=== PATIENT | female | born 1965 | race Caucasian/White ===

== ENCOUNTER → 2019-09-27 | Outpatient (CLI) | payer BC, OTHER ==
[2019-09-27 13:54] LABS: C REACTIVE PROTEIN QUANTITATIV 0.45 MG/DL (0.00-0.30); RHEUMATOID FACTOR QUANT < 10.0 IU/ML (<15.0)
[2019-10-02 11:14] LABS: ANTINUCLEAR ANTIBODIES DIRECT Negative (Negative); HLA-B27 Negative (.)
== END ==
LOC: M LAB 11:55
PROVIDERS: ATTEND Physician Assistant
DX: M16.0 Bilateral primary osteoarthritis of hip (principal)

== ENCOUNTER → 2019-09-27 | Outpatient (CLI) | payer BC, OTHER ==
[2019-09-27 13:35] LABS: BASO % 0.6 % (0.0-1.0); EOS # 0.2 10^3/uL (0.0-0.5); EOS % 3.1 % (0.0-3.0); HEMATOCRIT 44.7 % (36.0-47.0); HEMOGLOBIN 14.1 g/dl (12.0-15.5); LYMPH # 2.4 10^3/uL (1.5-5.0); LYMPH % 37.4 % (24.0-44.0); MEAN CORPUSCULAR HEMOGLOBIN 30.2 pg (27.0-33.0); MEAN CORPUSCULAR HGB CONC 31.5 g/dl (32.0-36.5); MEAN CORPUSCULAR VOLUME 95.7 fl (80.0-96.0); MONO # 0.4 10^3/uL (0.0-0.8); MONO % 6.2 % (0.0-5.0); NEUTROPHILS # 3.4 10^3/uL (1.5-8.5); NEUTROPHILS % 52.4 % (36.0-66.0); PLATELET COUNT, AUTOMATED 318 10^3/uL (150-450); RED BLOOD COUNT 4.67 10^6/uL (4.00-5.40); WHITE BLOOD COUNT 6.4 10^3/uL (4.0-10.0)
[2019-09-27 13:45] LABS: INR 0.99; PROTHROMBIN TIME 12.8 SECONDS (11.8-14.0)
[2019-09-27 13:59] LABS: ALBUMIN 3.9 GM/DL (3.2-5.2); ALT/SGPT 33 U/L (12-78); BILIRUBIN,TOTAL 0.5 MG/DL (0.2-1.0); BLOOD UREA NITROGEN 13 MG/DL (7-18); CARBON DIOXIDE LEVEL 33 MEQ/L (21-32); CHLORIDE LEVEL 102 MEQ/L (98-107); CREATININE FOR GFR 0.67 MG/DL (0.55-1.30); GLOMERULAR FILTRATION RATE > 60.0 (>51); GLUCOSE, FASTING 91 MG/DL (70-100); POTASSIUM SERUM 4.1 MEQ/L (3.5-5.1); SODIUM LEVEL 137 MEQ/L (136-145); TOTAL PROTEIN 7.8 GM/DL (6.4-8.2)
== END ==
LOC: M LAB 12:00
PROVIDERS: ATTEND Internal Medicine Adolescent Medicine
DX: K76.0 Fatty (change of) liver, not elsewhere classified (principal); R16.0 Hepatomegaly, not elsewhere classified; D18.03 Hemangioma of intra-abdominal structures

== ENCOUNTER → 2020-01-08 | Outpatient (CLI) | payer BC, OTHER ==
[2020-01-08 12:42] LABS: THYROID STIMULATING HORMONE 1.22 uIU/ML (0.358-3.740); THYROXINE (T4) 9.2 UG/DL (4.5-12.0)
== END ==
LOC: M LAB 11:10
PROVIDERS: ATTEND Physician Assistant
DX: E04.2 Nontoxic multinodular goiter (principal)

== ENCOUNTER → 2020-01-08 | Outpatient (CLI) | payer BC, OTHER ==
[2020-01-08 11:58] LABS: PLATELET COUNT, AUTOMATED 330 10^3/uL (150-450)
[2020-01-08 12:15] LABS: INR 0.92; PARTIAL THROMBOPLASTIN TIME 27.1 SECONDS (24.2-38.5); PROTHROMBIN TIME 12.5 SECONDS (12.5-14.3)
== END ==
LOC: M LAB 11:07
PROVIDERS: ATTEND Physician Assistant
DX: M51.27 Other intervertebral disc displacement, lumbosacral region (principal)

== ENCOUNTER → 2020-01-08 | Outpatient (CLI) | payer BC, OTHER | LOC: M LABSMTC 10:51 | PROVIDERS: ATTEND Physical Medicine & Rehabilitation | DX: Z01.812 Encounter for preprocedural laboratory examination (principal); Z20.828 Contact with and (suspected) exposure to other viral communicable diseases ==

== ENCOUNTER → 2020-04-02 | Outpatient (REF) | payer BC, OTHER ==
[2020-04-02 13:36] LABS: APPEARANCE, URINE CLEAR (CLEAR); BACTERIA, URINE AUTO NEGATIVE (NEGATIVE); BILIRUBIN, URINE AUTO NEGATIVE (NEGATIVE); BLOOD, URINE BLOOD NEGATIVE (NEGATIVE); COLOR, URINE YELLOW (YELLOW); GLUCOSE, URINE (UA) AUTO NEGATIVE (NEGATIVE); KETONE, URINE AUTO NEGATIVE (NEGATIVE); LEUKOCYTE ESTERASE, URINE AUTO NEGATIVE (NEGATIVE); MUCUS, URINE SMALL (NEGATIVE); NITRITE, URINE AUTO NEGATIVE (NEGATIVE); PROTEIN, URINE AUTO NEGATIVE (NEGATIVE); RBC, URINE AUTO 0 /HPF (0-3); SPECIFIC GRAVITY URINE AUTO 1.016 (1.002-1.035); SQUAMOUS EPITHELIAL CELL UR AU 1 /HPF (0-6); UROBILINOGEN, URINE AUTO 0.2 mg/dL (0.0-2.0); WBC, URINE AUTO 1 /HPF (0-3)
== END ==
LOC: M SMT 13:22
PROVIDERS: ATTEND Nurse Practitioner Women's Health
DX: R32 Unspecified urinary incontinence (principal)

== ENCOUNTER → 2020-11-13 | Outpatient (CLI) | payer BC, OTHER ==
[~2020-11-13] MED LIST: GASTROGRAFIN SOLUTION 30ML (Q9963) As Ordered ONE; ISOVUE-370 76% 100ML VIAL As Ordered ONE
--- NOTE | 2020-11-15 09:21 | REP ---
INDICATION: ABD PAIN. COMPARISON: None. TECHNIQUE: Scans were obtained during contrast administration. FINDINGS: The lower lungs are clear The liver shows normal size. Two tiny hemangiomas inferior portion the right lobe. No mass or biliary tract dilatation. The gallbladder has been surgically removed. The pancreas and spleen show normal size and attenuation. Aorta shows normal caliber. Adrenal glands are not enlarged. 1 cm cyst upper pole right kidney. Kidneys otherwise unremarkable. Large and small bowel unremarkable the a santos mass, adenopathy or inflammatory change in the abdomen or pelvis. The uterus and ovaries have been removed. IMPRESSION: No acute process. <Electronically signed by Anil Lewis > 11/15/20 [id number]
== END ==
LOC: M RAD 15:34
PROVIDERS: ATTEND Internal Medicine Adolescent Medicine
DX: R10.9 Unspecified abdominal pain (principal)
CPT/HCPCS: 74177; Q9963; Q9967

== ENCOUNTER 2020-11-26 13:07 | Emergency (ER) | payer BC, OTHER ==
[~2020-11-26] VITALS: Ht 157.5 cm; Wt 83.2 kg
[2020-11-26 13:07] VITALS: BP 117/87
[2020-11-26] MEDS ORDERED: MAGN400T2 (13:15)
[2020-11-26] MEDS ORDERED: HYDR12.55 (13:15)
[2020-11-26] MEDS ORDERED: SM (13:15)
[2020-11-26] MEDS ORDERED: PANT40TA29 (13:15)
[2020-11-26] MEDS ORDERED: D 50CAP2 (13:15)
[2020-11-26] MEDS ORDERED: VALA500T5 (13:15)
[2020-11-26] MEDS ORDERED: DIFI200T (13:15)
== END 2020-11-26 15:38 | disposition left against medical advice (07) ==
LOC: M ED 13:07
DX: Z53.29 Procedure and treatment not carried out because of patient's decision for other reasons (principal)

== ENCOUNTER 2020-12-21 11:41 | Outpatient (CLI) | payer BC, OTHER ==
[~2020-12-21] VITALS: Ht 157.5 cm; Wt 77.2 kg
[~2020-12-21 11:41] MED LIST changes: +ACETAMINOPHEN TAB 650MG DOSE (2X325MG) PO ONE; +D 50CAP2; +DIFI200T; -GASTROGRAFIN SOLUTION 30ML (Q9963) As Ordered ONE; +HYDR12.55; -ISOVUE-370 76% 100ML VIAL As Ordered ONE; +MAGN400T2; +OCRELIZUMAB 300 MG in NS 250 ML IV ONE; +PANT40TA29; +SM; +VALA500T5; +diphenhydrAMINE 25MG CAP PO ONE; +methylPREDNISolone 125MG 2ML VIAL IV ONE
[2020-12-21 11:45] VITALS: BP 136/75
[2020-12-21 13:15] VITALS: BP 114/69
[2020-12-21] MEDS ORDERED: MELA3TAB13 PO (13:20)
[2020-12-21 13:45] VITALS: BP 128/62
[2020-12-21 14:15] VITALS: BP 113/63
[2020-12-21 14:45] VITALS: BP 116/64
[2020-12-21 15:35] VITALS: BP 112/60
== END 2020-12-21 15:55 | disposition home or self-care (01) ==
LOC: M INFU 11:41
PROVIDERS: ATTEND Psychiatry & Neurology Neurology
DX: G35 Multiple sclerosis (principal)
CPT/HCPCS: 96365; 96366; 96375; J2350; J2930

== ENCOUNTER 2021-01-26 16:11 | Outpatient (CLI) | payer BC, OTHER ==
[~2021-01-26] VITALS: Ht 157.5 cm; Wt 77.2 kg
[~2021-01-26 16:11] MED LIST changes: -ACETAMINOPHEN TAB 650MG DOSE (2X325MG) PO ONE; +BEZLOTOXUMAB 850 MG in NS 100 ML IV ONE; +MELA3TAB13 PO; -OCRELIZUMAB 300 MG in NS 250 ML IV ONE; -diphenhydrAMINE 25MG CAP PO ONE; -methylPREDNISolone 125MG 2ML VIAL IV ONE
[2021-01-26 16:41] VITALS: BP 134/81
[2021-01-26 18:09] VITALS: BP 111/73
== END 2021-01-26 18:11 | disposition home or self-care (01) ==
LOC: M INFU 16:11
PROVIDERS: ATTEND Internal Medicine Adolescent Medicine
DX: A04.71 Enterocolitis due to Clostridium difficile, recurrent (principal); Z88.8 Allergy status to other drugs, medicaments and biological substances
CPT/HCPCS: 96365; J0565

== ENCOUNTER 2021-02-15 08:48 | Outpatient (CLI) | payer BC, OTHER ==
[~2021-02-15] VITALS: Ht 157.5 cm; Wt 77.2 kg
[~2021-02-15 08:48] MED LIST changes: -APPL300T4 PO; -BIOT1CAP2 PO; -COLOCAP PO; -DRIS50003 PO; -MILK140C PO; -MIRA1POW3 PO; -QC F0.52 PO; -VITMTA PO
[2021-02-15] MEDS ORDERED: diphenhydrAMINE 25MG CAP PO ONE (09:00)
[2021-02-15] MEDS ORDERED: methylPREDNISolone (125 MG/2 ML) IV IV ONE (09:00)
[2021-02-15] MEDS ORDERED: OCRELIZUMAB 300 MG in NS 250 ML IV ONE (09:00)
[2021-02-15] MEDS ORDERED: ACETAMINOPHEN TAB 650MG DOSE (2X325MG) PO ONE (09:00)
[2021-02-15 09:20] VITALS: BP 133/70
[2021-02-15] MEDS ORDERED: DRIS50003 PO (09:29)
[2021-02-15] MEDS ORDERED: VITMTA PO (09:29)
[2021-02-15] MEDS ORDERED: COLOCAP PO (09:30)
[2021-02-15] MEDS ORDERED: QC F0.52 PO (09:30)
[2021-02-15] MEDS ORDERED: BIOT1CAP2 PO (09:30)
[2021-02-15] MEDS ORDERED: APPL300T4 PO (09:31)
[2021-02-15] MEDS ORDERED: MIRA1POW3 PO (09:31)
[2021-02-15] MEDS ORDERED: MILK140C PO (09:32)
[2021-02-15 10:30] VITALS: BP 115/69
[2021-02-15 11:00] VITALS: BP 110/71
[2021-02-15 11:30] VITALS: BP 120/73
[2021-02-15 13:00] VITALS: BP 125/72
== END 2021-02-15 13:00 | disposition home or self-care (01) ==
LOC: M INFU 08:48
PROVIDERS: ATTEND Psychiatry & Neurology Neurology
DX: G35 Multiple sclerosis (principal)
CPT/HCPCS: 96365; 96366; 96375; J2350; J2930

== ENCOUNTER → 2021-02-15 | Outpatient (CLI) | payer BC, OTHER ==
[~2021-02-15] MED LIST changes: +APPL300T4 PO; -BEZLOTOXUMAB 850 MG in NS 100 ML IV ONE; +BIOT1CAP2 PO; +COLOCAP PO; +DRIS50003 PO; +MILK140C PO; +MIRA1POW3 PO; +QC F0.52 PO; +VITMTA PO
[2021-02-15 09:30] LABS: BASO # 0.1 10^3/uL (0.0-0.2); BASO % 0.6 % (0.0-1.0); EOS # 0.2 10^3/uL (0.0-0.5); EOS % 2.8 % (0.0-3.0); HEMATOCRIT 42.3 % (36.0-47.0); HEMOGLOBIN 13.9 g/dl (12.0-15.5); LYMPH # 1.9 10^3/uL (1.5-5.0); LYMPH % 24.5 % (24.0-44.0); MEAN CORPUSCULAR HEMOGLOBIN 30.2 pg (27.0-33.0); MEAN CORPUSCULAR HGB CONC 32.9 g/dl (32.0-36.5); MEAN CORPUSCULAR VOLUME 91.8 fl (80.0-96.0); MONO # 0.5 10^3/uL (0.0-0.8); MONO % 5.9 % (2.0-8.0); NEUTROPHILS # 5.2 10^3/uL (1.5-8.5); NEUTROPHILS % 66.1 % (36.0-66.0); PLATELET COUNT, AUTOMATED 330 10^3/uL (150-450); RED BLOOD COUNT 4.61 10^6/uL (4.00-5.40); WHITE BLOOD COUNT 7.9 10^3/uL (4.0-10.0)
[2021-02-15 10:05] LABS: IMMUNOGLOBULIN G 1190 MG/DL (681-1648); IMMUNOGLOBULIN M 74.2 MG/DL (40-230); TOTAL PROTEIN 7.7 GM/DL (6.4-8.2)
[2021-02-16 13:43] LABS: ALBUMIN 4.15 GM/DL (3.29-5.55); ALBUMIN % 53.9 % (55.8-66.1); ALPHA-1-GLOBULINS 0.31 GM/DL (0.17-0.41); ALPHA-2-GLOBULINS % 11.7 % (7.1-11.8); BETA-1-GLOBULINS 0.55 GM/DL (0.28-0.60); BETA-1-GLOBULINS % 7.1 % (4.7-7.2); BETA-2-GLOBULINS 0.55 GM/DL (0.19-0.55); BETA-2-GLOBULINS % 7.2 % (3.2-6.5); GAMMA GLOBULIN % 16.1 % (11.1-18.8); GAMMA GLOBULINS 1.24 GM/DL (0.65-1.58)
== END ==
LOC: M LAB 08:53
PROVIDERS: ATTEND Psychiatry & Neurology Neurology
DX: G35 Multiple sclerosis (principal)

== ENCOUNTER → 2021-05-13 | Outpatient (CLI) | payer BC, OTHER ==
[~2021-05-13] MED LIST changes: +APPL300T4 PO; +BIOT1CAP2 PO; +COLOCAP PO; +DRIS50003 PO; +MILK140C PO; +MIRA1POW3 PO; +QC F0.52 PO; +VITMTA PO
== END ==
LOC: M RAD 09:48
PROVIDERS: ATTEND Physician Assistant
DX: M51.36 Other intervertebral disc degeneration, lumbar region (principal); M51.26 Other intervertebral disc displacement, lumbar region; M51.27 Other intervertebral disc displacement, lumbosacral region

== ENCOUNTER → 2021-07-14 | Outpatient (CLI) | payer MEDICARE, BC, OTHER ==
[2021-07-14 12:13] LABS: APPEARANCE, URINE CLEAR (CLEAR); BACTERIA, URINE AUTO NEGATIVE (NEGATIVE); BILIRUBIN, URINE AUTO NEGATIVE (NEGATIVE); BLOOD, URINE BLOOD NEGATIVE (NEGATIVE); COLOR, URINE STRAW (YELLOW); GLUCOSE, URINE (UA) AUTO NEGATIVE (NEGATIVE); KETONE, URINE AUTO NEGATIVE (NEGATIVE); LEUKOCYTE ESTERASE, URINE AUTO NEGATIVE (NEGATIVE); MUCUS, URINE SMALL (NEGATIVE); NITRITE, URINE AUTO NEGATIVE (NEGATIVE); PROTEIN, URINE AUTO NEGATIVE (NEGATIVE); RBC, URINE AUTO 0 /HPF (0-3); SQUAMOUS EPITHELIAL CELL UR AU 1 /HPF (0-6); UROBILINOGEN, URINE AUTO 0.2 mg/dL (0.0-2.0); WBC, URINE AUTO 1 /HPF (0-3)
[2021-07-14 12:15] LABS: BASO % 0.3 % (0.0-1.0); EOS # 0.2 10^3/uL (0.0-0.5); EOS % 2.2 % (0.0-3.0); HEMOGLOBIN 14.8 g/dl (12.0-15.5); LYMPH # 2.8 10^3/uL (1.5-5.0); MEAN CORPUSCULAR HEMOGLOBIN 30.1 pg (27.0-33.0); MEAN CORPUSCULAR HGB CONC 32.9 g/dl (32.0-36.5); MEAN CORPUSCULAR VOLUME 91.5 fl (80.0-96.0); MONO # 0.7 10^3/uL (0.0-0.8); MONO % 6.9 % (2.0-8.0); NEUTROPHILS # 6.8 10^3/uL (1.5-8.5); NEUTROPHILS % 64.2 % (36.0-66.0); PLATELET COUNT, AUTOMATED 379 10^3/uL (150-450); RED BLOOD COUNT 4.92 10^6/uL (4.00-5.40); WHITE BLOOD COUNT 10.6 10^3/uL (4.0-10.0)
[2021-07-14 12:52] LABS: ALT/SGPT 35 U/L (12-78); BILIRUBIN,TOTAL 0.5 MG/DL (0.2-1.0); BLOOD UREA NITROGEN 13 MG/DL (7-18); CALCIUM LEVEL 9.6 MG/DL (8.5-10.1); CARBON DIOXIDE LEVEL 29 MEQ/L (21-32); CHLORIDE LEVEL 101 MEQ/L (98-107); CREATININE FOR GFR 0.66 MG/DL (0.55-1.30); GLOMERULAR FILTRATION RATE > 60.0 (>51); GLUCOSE, FASTING 95 MG/DL (70-100); SODIUM LEVEL 136 MEQ/L (136-145)
== END ==
LOC: M LAB 11:03
PROVIDERS: ATTEND Nurse Practitioner
DX: G35 Multiple sclerosis (principal)

== ENCOUNTER 2021-08-16 08:48 | Outpatient (CLI) | payer MEDICARE, BC, OTHER ==
[2021-08-16] VITALS (8 sets, daily range): BP systolic 116–135; BP diastolic 68–81
[~2021-08-16] VITALS: Ht 157.5 cm; Wt 78.6 kg
[~2021-08-16 08:48] MED LIST changes: +ACETAMINOPHEN TAB 650MG DOSE (2X325MG) PO ONE; +OCRELIZUMAB 600 MG in NS 500 ML IV ONE; +diphenhydrAMINE 25MG CAP PO ONE; +methylPREDNISolone 125MG 2ML VIAL IV ONE
[2021-08-16] MEDS ORDERED: FAMO40TA3 PO (09:25)
== END 2021-08-16 13:40 | disposition home or self-care (01) ==
LOC: M INFU 08:48
PROVIDERS: ATTEND Psychiatry & Neurology Neurology
DX: G35 Multiple sclerosis (principal); Z88.8 Allergy status to other drugs, medicaments and biological substances; Z91.041 Radiographic dye allergy status
CPT/HCPCS: 96365; 96366; 96375; J2350; J2930

== ENCOUNTER → 2021-11-16 | Outpatient (CLI) | payer MEDICARE, BC, OTHER ==
[~2021-11-16] MED LIST changes: -ACETAMINOPHEN TAB 650MG DOSE (2X325MG) PO ONE; +FAMO40TA3 PO; -OCRELIZUMAB 600 MG in NS 500 ML IV ONE; -diphenhydrAMINE 25MG CAP PO ONE; -methylPREDNISolone 125MG 2ML VIAL IV ONE
== END ==
LOC: M PLAIMG 10:28
PROVIDERS: ATTEND Physician Assistant
DX: M47.896 Other spondylosis, lumbar region (principal); M51.24 Other intervertebral disc displacement, thoracic region; M51.25 Other intervertebral disc displacement, thoracolumbar region; M51.26 Other intervertebral disc displacement, lumbar region; M48.061 Spinal stenosis, lumbar region without neurogenic claudication; M99.63 Osseous and subluxation stenosis of intervertebral foramina of lumbar region; M51.36 Other intervertebral disc degeneration, lumbar region

== ENCOUNTER → 2021-12-31 | Outpatient (CLI) | payer MEDICARE, OTHER | LOC: M PAIN 09:00 | PROVIDERS: ATTEND Nurse Practitioner Family | DX: M48.061 Spinal stenosis, lumbar region without neurogenic claudication (principal); M46.1 Sacroiliitis, not elsewhere classified; K21.9 Gastro-esophageal reflux disease without esophagitis; E04.2 Nontoxic multinodular goiter; I10 Essential (primary) hypertension; M54.50 Low back pain, unspecified; K76.0 Fatty (change of) liver, not elsewhere classified; K58.9 Irritable bowel syndrome, unspecified; D64.9 Anemia, unspecified; G35 Multiple sclerosis; Z79.899 Other long term (current) drug therapy; Z88.5 Allergy status to narcotic agent; Z88.8 Allergy status to other drugs, medicaments and biological substances; Z91.041 Radiographic dye allergy status ==

== ENCOUNTER → 2022-01-27 | Outpatient (CLI) | payer MEDICARE, OTHER | LOC: M PLAIMG 10:34 | PROVIDERS: ATTEND Nurse Practitioner Family | DX: M48.00 Spinal stenosis, site unspecified (principal) ==

== ENCOUNTER → 2022-02-02 | Outpatient (CLI) | payer MEDICARE, OTHER ==
[2022-02-02 13:25] LABS: BASO # 0.1 10^3/uL (0.0-0.2); BASO % 0.6 % (0.0-1.0); EOS # 0.1 10^3/uL (0.0-0.5); EOS % 1.5 % (0.0-3.0); HEMATOCRIT 41.9 % (36.0-47.0); HEMOGLOBIN 13.8 g/dl (12.0-15.5); LYMPH # 1.2 10^3/uL (1.5-5.0); LYMPH % 13.6 % (24.0-44.0); MEAN CORPUSCULAR HEMOGLOBIN 31.2 pg (27.0-33.0); MEAN CORPUSCULAR HGB CONC 32.9 g/dl (32.0-36.5); MEAN CORPUSCULAR VOLUME 94.6 fl (80.0-96.0); MONO # 0.8 10^3/uL (0.0-0.8); MONO % 8.8 % (2.0-8.0); NEUTROPHILS # 6.4 10^3/uL (1.5-8.5); PLATELET COUNT, AUTOMATED 309 10^3/uL (150-450); RED BLOOD COUNT 4.43 10^6/uL (4.00-5.40); WHITE BLOOD COUNT 8.6 10^3/uL (4.0-10.0)
[2022-02-02 14:21] LABS: ALBUMIN 3.8 GM/DL (3.2-5.2); ALT/SGPT 34 U/L (12-78); BILIRUBIN,TOTAL 0.3 MG/DL (0.2-1.0); BLOOD UREA NITROGEN 9 MG/DL (7-18); CALCIUM LEVEL 9.6 MG/DL (8.5-10.1); CARBON DIOXIDE LEVEL 30 MEQ/L (21-32); CHLORIDE LEVEL 100 MEQ/L (98-107); CREATININE FOR GFR 0.64 MG/DL (0.55-1.30); GLOMERULAR FILTRATION RATE > 60.0 (>51); GLUCOSE, FASTING 100 MG/DL (70-100); IMMUNOGLOBULIN G 954 MG/DL (681-1648); IMMUNOGLOBULIN M 57.3 MG/DL (40-230); POTASSIUM SERUM 3.7 MEQ/L (3.5-5.1); SODIUM LEVEL 135 MEQ/L (136-145); TOTAL PROTEIN 7.6 GM/DL (6.4-8.2)
[2022-02-04 13:36] LABS: ALBUMIN 4.18 GM/DL (3.29-5.55); ALPHA-1-GLOBULIN % 4.8 % (2.9-4.9); ALPHA-1-GLOBULINS 0.36 GM/DL (0.17-0.41); ALPHA-2-GLOBULINS 0.97 GM/DL (0.42-0.99); ALPHA-2-GLOBULINS % 12.8 % (7.1-11.8); BETA-1-GLOBULINS 0.49 GM/DL (0.28-0.60); BETA-1-GLOBULINS % 6.4 % (4.7-7.2); BETA-2-GLOBULINS 0.52 GM/DL (0.19-0.55); BETA-2-GLOBULINS % 6.9 % (3.2-6.5); GAMMA GLOBULIN % 14.1 % (11.1-18.8); GAMMA GLOBULINS 1.07 GM/DL (0.65-1.58)
== END ==
LOC: M LAB 11:59
PROVIDERS: ATTEND Psychiatry & Neurology Neurology
DX: G35 Multiple sclerosis (principal)

== ENCOUNTER → 2022-02-10 | Outpatient (CLI) | payer MEDICARE, OTHER | LOC: M PAIN 10:45 | PROVIDERS: ATTEND Nurse Practitioner Family | DX: M48.00 Spinal stenosis, site unspecified (principal); M46.1 Sacroiliitis, not elsewhere classified; G89.29 Other chronic pain; K21.9 Gastro-esophageal reflux disease without esophagitis; G35 Multiple sclerosis; I10 Essential (primary) hypertension; Z88.5 Allergy status to narcotic agent; Z88.8 Allergy status to other drugs, medicaments and biological substances; Z91.041 Radiographic dye allergy status; Z79.899 Other long term (current) drug therapy ==

== ENCOUNTER 2022-02-16 08:40 | Outpatient (CLI) | payer MEDICARE, BC, OTHER ==
[2022-02-16] VITALS (7 sets, daily range): BP systolic 102–134; BP diastolic 61–94
[~2022-02-16] VITALS: Ht 157.5 cm; Wt 78.6 kg
[~2022-02-16 08:40] MED LIST changes: +ACETAMINOPHEN TAB 650MG DOSE (2X325MG) PO ONE; +OCRELIZUMAB 600 MG in NS 500 ML IV ONE; +diphenhydrAMINE 25MG CAP PO ONE; +methylPREDNISolone 125MG 2ML VIAL IV ONE
== END 2022-02-16 13:25 | disposition home or self-care (01) ==
LOC: M INFU 08:40
PROVIDERS: ATTEND Psychiatry & Neurology Neurology
DX: G35 Multiple sclerosis (principal); Z88.8 Allergy status to other drugs, medicaments and biological substances
CPT/HCPCS: 96365; 96366; J2350; J2930

== ENCOUNTER → 2022-02-23 | Outpatient (CLI) | payer MEDICARE, OTHER ==
[~2022-02-23] MED LIST changes: -ACETAMINOPHEN TAB 650MG DOSE (2X325MG) PO ONE; -OCRELIZUMAB 600 MG in NS 500 ML IV ONE; -diphenhydrAMINE 25MG CAP PO ONE; -methylPREDNISolone 125MG 2ML VIAL IV ONE
== END ==
LOC: M PAIN 16:00
PROVIDERS: ATTEND Anesthesiology
DX: M54.50 Low back pain, unspecified (principal); M51.16 Intervertebral disc disorders with radiculopathy, lumbar region; K21.9 Gastro-esophageal reflux disease without esophagitis; E04.2 Nontoxic multinodular goiter; I10 Essential (primary) hypertension; A60.09 Herpesviral infection of other urogenital tract; K76.0 Fatty (change of) liver, not elsewhere classified; K58.9 Irritable bowel syndrome, unspecified; D64.9 Anemia, unspecified; Z79.899 Other long term (current) drug therapy; Z88.5 Allergy status to narcotic agent; Z88.8 Allergy status to other drugs, medicaments and biological substances; Z91.041 Radiographic dye allergy status

== ENCOUNTER → 2022-03-15 | Outpatient (CLI) | payer MEDICARE, BC, OTHER | LOC: M PAIN 13:00 | PROVIDERS: ATTEND Anesthesiology | DX: M54.50 Low back pain, unspecified (principal); M79.10 Myalgia, unspecified site; M79.18 Myalgia, other site; M54.16 Radiculopathy, lumbar region; M53.3 Sacrococcygeal disorders, not elsewhere classified; K21.9 Gastro-esophageal reflux disease without esophagitis; E04.2 Nontoxic multinodular goiter; M48.062 Spinal stenosis, lumbar region with neurogenic claudication; M47.816 Spondylosis without myelopathy or radiculopathy, lumbar region; I10 Essential (primary) hypertension; K76.0 Fatty (change of) liver, not elsewhere classified; K58.9 Irritable bowel syndrome, unspecified; Z87.898 Personal history of other specified conditions; D64.9 Anemia, unspecified; A60.09 Herpesviral infection of other urogenital tract; Z79.899 Other long term (current) drug therapy; Z88.5 Allergy status to narcotic agent; Z88.8 Allergy status to other drugs, medicaments and biological substances; Z91.041 Radiographic dye allergy status | CPT/HCPCS: 76000; G0463 ==

== ENCOUNTER → 2022-05-26 | Outpatient (CLI) | payer MEDICARE, BC, OTHER | LOC: M PAIN 13:00 | PROVIDERS: ATTEND Nurse Practitioner Family | DX: M25.522 Pain in left elbow (principal); G35 Multiple sclerosis; I10 Essential (primary) hypertension; Z88.5 Allergy status to narcotic agent; Z88.8 Allergy status to other drugs, medicaments and biological substances; Z91.041 Radiographic dye allergy status; Z79.899 Other long term (current) drug therapy ==

== ENCOUNTER → 2022-05-26 | Outpatient (CLI) | payer MEDICARE, OTHER, BC | LOC: M RAD 14:48 | PROVIDERS: ATTEND Nurse Practitioner Family | DX: M25.522 Pain in left elbow (principal) ==

== ENCOUNTER → 2022-07-07 | Outpatient (CLI) | payer MEDICARE, BC, OTHER | LOC: M PAIN 09:30 | PROVIDERS: ATTEND Nurse Practitioner Family | DX: M79.10 Myalgia, unspecified site (principal); G89.29 Other chronic pain; G35 Multiple sclerosis; I10 Essential (primary) hypertension; Z88.5 Allergy status to narcotic agent; Z88.8 Allergy status to other drugs, medicaments and biological substances; Z91.041 Radiographic dye allergy status; Z79.899 Other long term (current) drug therapy ==

== ENCOUNTER 2022-08-16 08:08 | Outpatient (CLI) | payer MEDICARE, BC, OTHER ==
[2022-08-16 08:16] VITALS: BP 131/81
[2022-08-16] MEDS ORDERED: ACETAMINOPHEN TAB 650MG DOSE (2X325MG) PO ONE (08:30)
[2022-08-16] MEDS ORDERED: OCRELIZUMAB 600 MG in NS 500 ML IV ONE (08:30)
[2022-08-16] MEDS ORDERED: methylPREDNISolone 125MG 2ML VIAL IV ONE (08:30)
[2022-08-16] MEDS ORDERED: diphenhydrAMINE 25MG CAP PO ONE (08:30)
[2022-08-16 09:00] VITALS: BP 136/83
[2022-08-16 12:45] VITALS: BP 137/82
== END 2022-08-16 12:55 ==
LOC: M INFU 08:08
PROVIDERS: ATTEND Psychiatry & Neurology Neurology
DX: G35 Multiple sclerosis (principal); Z88.8 Allergy status to other drugs, medicaments and biological substances
CPT/HCPCS: 96365; 96366; 96375; J2350; J2930

== ENCOUNTER → 2022-09-27 | Outpatient (CLI) | payer MEDICARE, BC, OTHER ==
[~2022-09-27] MED LIST changes: +TRIAMCINOLONE ACETONIDE SUSP 40MG/ML 1ML VIAL As Ordered ONE; +diazePAM 5MG TABLET As Ordered ONE
== END ==
LOC: M PAIN 08:15
PROVIDERS: ATTEND Anesthesiology
DX: M79.18 Myalgia, other site (principal); G89.29 Other chronic pain; G35 Multiple sclerosis; I10 Essential (primary) hypertension; Z88.5 Allergy status to narcotic agent; Z88.8 Allergy status to other drugs, medicaments and biological substances; Z91.041 Radiographic dye allergy status; Z79.899 Other long term (current) drug therapy
CPT/HCPCS: 20552; J3301